=== PATIENT | female | born 1990 | race Asian ===

== ENCOUNTER 2016-07-12 21:22 | Emergency (ER) | payer OTHER ==
[~2016-07-12] VITALS: Ht 162.6 cm; Wt 56.7 kg
[2016-07-12 22:25] VITALS: BP 110/68
== END 2016-07-12 22:27 | disposition home or self-care (01) ==
LOC: ED 21:22
DX: M26.602 Left temporomandibular joint disorder, unspecified (principal)
CPT/HCPCS: 99281

== ENCOUNTER 2016-08-11 16:10 | Emergency (ER) | payer OTHER ==
[~2016-08-11] VITALS: Ht 157.5 cm; Wt 52.2 kg
[2016-08-11 16:23] VITALS: BP 102/61; TEMP 98.6
[2016-08-11 16:44] LABS: PLATELET COUNT 190 K/uL (152-353)
== END 2016-08-11 17:34 | disposition home or self-care (01) ==
LOC: ED 16:10
DX: J02.0 Streptococcal pharyngitis (principal)
CPT/HCPCS: 85027; 86318; 87880; 99283

== ENCOUNTER 2016-08-24 19:14 | Emergency (ER) | payer OTHER ==
[~2016-08-24] VITALS: Ht 162.6 cm; Wt 56.7 kg
[2016-08-24 20:30] VITALS: BP 112/72; TEMP 98.6
== END 2016-08-24 20:30 | disposition home or self-care (01) ==
LOC: ED 19:14
DX: J02.0 Streptococcal pharyngitis (principal); R63.0 Anorexia; R51 Headache
CPT/HCPCS: 99281

== ENCOUNTER 2016-09-27 20:39 | Emergency (ER) | payer OTHER ==
[~2016-09-27] VITALS: Ht 162.6 cm; Wt 57.6 kg
[2016-09-27 23:50] VITALS: BP 116/74; TEMP 99.1
== END 2016-09-27 23:45 | disposition home or self-care (01) ==
LOC: ED 20:39
DX: N39.0 Urinary tract infection, site not specified (principal)
CPT/HCPCS: 81000; 81025; 87086; 87088; 99282

== ENCOUNTER 2017-08-23 14:55 | Emergency (ER) | payer BC ==
[~2017-08-23] VITALS: Ht 162.6 cm; Wt 61.2 kg
[2017-08-23 15:13] VITALS: TEMP 97.7
[2017-08-23 16:24] LABS: PLATELET COUNT 218 K/uL (152-353)
[2017-08-23 16:27] LABS: POTASSIUM 3.8 mmol/L (3.6-5.2)
[2017-08-23 17:38] VITALS: BP 119/68
== END 2017-08-23 17:39 | disposition home or self-care (01) ==
LOC: ED 14:55
PROVIDERS: Specialist
DX: A08.8 Other specified intestinal infections (principal)
CPT/HCPCS: 36415; 80048; 85027; 96361; 96374; 99284; J2405

== ENCOUNTER 2017-10-07 17:55 | Emergency (ER) | payer BC ==
[~2017-10-07] VITALS: Ht 162.6 cm; Wt 61.2 kg
[2017-10-07 18:00] VITALS: BP 115/53; TEMP 99.1
[2017-10-07 18:55] LABS: PLATELET COUNT 199 K/uL (152-353)
[2017-10-07 19:07] LABS: POTASSIUM 3.9 mmol/L (3.6-5.2)
== END 2017-10-07 20:35 | disposition home or self-care (01) ==
LOC: ED 17:55
PROVIDERS: Family Medicine
DX: R10.31 Right lower quadrant pain (principal)
CPT/HCPCS: 36415; 80053; 81000; 81025; 85027; 99283

== ENCOUNTER 2018-01-17 17:13 | Emergency (ER) | payer BC ==
[~2018-01-17] VITALS: Ht 162.6 cm; Wt 61.2 kg
[2018-01-17 19:22] VITALS: BP 110/60; TEMP 98.6
== END 2018-01-17 19:25 | disposition home or self-care (01) ==
LOC: ED 17:13
DX: S80.01XA Contusion of right knee, initial encounter (principal); W18.09XA Striking against other object with subsequent fall, initial encounter
CPT/HCPCS: 96372; 99283; J1885

== ENCOUNTER 2018-06-22 13:48 | Outpatient (CLI) | payer OTHER | END 2018-06-22 20:33 | disposition home or self-care (01) | LOC: CT 13:48 | DX: K46.9 Unspecified abdominal hernia without obstruction or gangrene (principal) | CPT/HCPCS: Q9963 ==

== ENCOUNTER 2018-07-21 13:44 | Outpatient (CLI) | payer OTHER ==
[~2018-07-21] VITALS: Ht 162.6 cm; Wt 56.7 kg
[2018-07-21 13:50] VITALS: BP 97/68; TEMP 100.2
== END 2018-07-21 17:30 | disposition home or self-care (01) ==
LOC: INF 13:44
DX: A08.4 Viral intestinal infection, unspecified (principal)
CPT/HCPCS: 96360; 96361

== ENCOUNTER 2019-04-12 20:32 | Emergency (ER) | payer OTHER ==
[~2019-04-12] VITALS: Ht 162.6 cm; Wt 56.7 kg
[2019-04-12 21:13] LABS: PLATELET COUNT 173 K/uL (152-353)
[2019-04-12 21:31] LABS: POTASSIUM 3.9 mmol/L (3.6-5.2); SODIUM 140 mmol/L (136-145)
[2019-04-12 21:33] LABS: PARTIAL THROMBOPLASTIN TIME 20.5 SECONDS (24.5-33.6)
[2019-04-12 23:30] VITALS: BP 119/74; TEMP 97.4
== END 2019-04-12 23:30 | disposition home or self-care (01) ==
LOC: ED 20:32
PROVIDERS: Hospitalist
DX: R07.89 Other chest pain (principal); K21.9 Gastro-esophageal reflux disease without esophagitis
CPT/HCPCS: 36415; 80053; 81025; 82550; 83880; 84484; 85027; 85379; 85610; 85730; 93005; 99284; Q9963

== ENCOUNTER 2019-07-06 15:15 | Outpatient (CLI) | payer OTHER | END 2019-07-06 22:26 | disposition home or self-care (01) | LOC: US 15:15 | DX: R10.31 Right lower quadrant pain (principal) ==

== ENCOUNTER 2019-10-08 17:37 | Emergency (ER) | payer OTHER ==
[~2019-10-08] VITALS: Ht 162.6 cm; Wt 56.7 kg
[2019-10-08 18:49] LABS: PLATELET COUNT 193 K/uL (152-353)
[2019-10-08 18:56] LABS: POTASSIUM 4.1 mmol/L (3.6-5.2); SODIUM 140 mmol/L (136-145)
[2019-10-08 20:00] VITALS: BP 120/75; TEMP 99.4
== END 2019-10-08 21:15 | disposition home or self-care (01) ==
LOC: ED 17:37
PROVIDERS: Family Medicine
DX: R07.89 Other chest pain (principal); U07.1 COVID-19; R06.09 Other forms of dyspnea
CPT/HCPCS: 36415; 80053; 81000; 81025; 82550; 84484; 85027; 93005; 96372; 99283; J1885

== ENCOUNTER 2019-12-08 13:05 | Outpatient (CLI) | payer OTHER | END 2019-12-08 20:16 | disposition home or self-care (01) | LOC: US 13:05 | DX: N92.0 Excessive and frequent menstruation with regular cycle (principal); E05.90 Thyrotoxicosis, unspecified without thyrotoxic crisis or storm ==

== ENCOUNTER 2020-07-15 16:51 | Outpatient (CLI) | payer OTHER | END 2020-07-15 23:29 | disposition home or self-care (01) | LOC: RAD 16:51 | PROVIDERS: ATTEND Nurse Practitioner Family | DX: J20.9 Acute bronchitis, unspecified (principal) ==

== ENCOUNTER 2020-11-16 11:56 | Emergency (ER) | payer OTHER ==
[~2020-11-16] VITALS: Ht 162.6 cm; Wt 56.7 kg
[2020-11-16 12:02] VITALS: BP 99/72
== END 2020-11-16 19:00 | disposition home or self-care (01) ==
LOC: ED 11:56
DX: Z53.21 Procedure and treatment not carried out due to patient leaving prior to being seen by health care provider (principal); R05 Cough; U07.1 COVID-19
CPT/HCPCS: 99281

== ENCOUNTER 2021-02-21 11:02 | Outpatient (CLI) | payer OTHER | END 2021-02-21 20:24 | disposition home or self-care (01) | LOC: RAD 11:02 | PROVIDERS: ATTEND Nurse Practitioner Family | DX: J09.X2 Influenza due to identified novel influenza A virus with other respiratory manifestations (principal) ==

== ENCOUNTER 2021-02-23 09:34 | Outpatient (CLI) | payer OTHER ==
[2021-02-23 10:06] LABS: PLATELET COUNT 193 K/uL (152-353)
[2021-02-23 10:15] LABS: POTASSIUM 3.7 mmol/L (3.6-5.2); SODIUM 140 mmol/L (136-145)
== END 2021-02-23 20:35 | disposition home or self-care (01) ==
LOC: LABW 09:34
PROVIDERS: ATTEND Nurse Practitioner Family
DX: J09.X2 Influenza due to identified novel influenza A virus with other respiratory manifestations (principal)
CPT/HCPCS: 36415; 80048; 82550; 82553; 82728; 84484; 85027; 85379; 86141

== ENCOUNTER 2023-04-21 10:27 | Outpatient (CLI) | payer OTHER | END 2023-04-21 19:40 | disposition home or self-care (01) | LOC: US 10:27 | PROVIDERS: ATTEND Nurse Practitioner Family | DX: N93.9 Abnormal uterine and vaginal bleeding, unspecified (principal) ==